=== PATIENT | male | born 1955 | race Caucasian/White ===

== ENCOUNTER 2016-09-23 21:10 | Inpatient (IN) | payer BC ==
--- NOTE | ~2016-09-23 | CN ---
Consultation Report [facility] [address] [place]. [address] NAME: AVA REAVES : 53 STATUS : ADM IN [facility]#: [id number] AGE: 61 ADM/REG DATE : 09/24/16 MR#: [id number] REPORT SERV DATE: 09/24/16 DICTATED BY: LESLIE BAER DATE: 09/24/16 REPORT STATUS : Draft TRANSCRIBED BY: MODL DATE: 09/24/16 INFECTIOUS DISEASE CONSULTATION DATE OF CONSULTATION: 09/24/2016 REASON FOR CONSULTATION: Antibiotic recommendations. HISTORY OF PRESENT ILLNESS: This is a 61-year-old man with a history of bilateral total knee arthroplasties about five years ago. He was mowing his lawn yesterday on his riding mower when it did turn over and trapped him underneath. A bit later his son found him and pulled him out and put a tourniquet on the leg and brought him to the emergency department where he underwent imaging as outlined below and was seen by Dr. Hassan who took him to the operating room last night and did irrigation and drainage. There was a lot of superficial and deep fascia that was torn with some muscle and fat in various places and injury to the saphenous vein, which could not be repaired. The patient underwent debridement and irrigation, and the wound was packed open and wrapped sterilely. The patient was started on vancomycin and Ancef. He is to return to the operating room tomorrow. He has had no fever. The patient denies any history of skin or soft tissue infections or MRSA infections. PAST MEDICAL HISTORY: Otherwise, notable for hypertension and hyperlipidemia. ALLERGIES: NO KNOWN DRUG ALLERGIES. PRESENT MEDICATIONS: In addition to the antibiotics include dexamethasone, Colace, Pepcid, iron, Toradol, multivitamins, OxyContin, and Coumadin sliding scale. SOCIAL HISTORY: Nonsmoker. Occasional alcohol. Lives with his . FAMILY HISTORY: Noncontributory. REVIEW OF SYSTEMS: Otherwise, negative. PHYSICAL EXAMINATION: VITAL SIGNS: The patient weighs 108 kg. He is afebrile. Blood pressure 117/66, pulse 58, and respiratory rate 14. GENERAL: He is lying in bed, and in no distress. HEAD AND NECK: Unremarkable. LUNGS: Clear to auscultation anteriorly. CARDIAC: Regular rate and rhythm. Normal S1 and S2 without murmur, gallop, or rub. ABDOMEN: Soft. EXTREMITIES: Left lower leg is in a postoperative dressing. The left total knee arthroplasty is without signs of inflammation. He has a peripheral IV without phlebitis. Consultation Report [place] [id number] [facility] [place]. [address] NAME: AVA REAVES : 53 STATUS : ADM IN PAT#: [id number] AGE: 61 ADM/REG DATE : 09/24/16 MR#: [id number] REPORT SERV DATE: 09/24/16 DICTATED BY: LESLIE BAER DATE: 09/24/16 REPORT STATUS : Draft TRANSCRIBED BY: KIERAN DATE: 09/24/16 LABORATORY STUDIES: White blood cell count initially yesterday was 10.1; hemoglobin initially was 14.2, repeat 10.5; and platelets 175. Liver function tests normal. Creatinine 0.84. The patient underwent CT scan of the brain, cervical spine, chest, abdomen, and pelvis without any acute findings. IMPRESSION: Severe leg laceration in a lawnmower accident with gross contamination of the deep tissues in the leg in a patient with bilateral total knee arthroplasties. PLAN: 1. We will continue Ancef for another 48 to 72 hours. 2. Await reassessment in the operating room tomorrow. BRIELLE/KIERAN Leslie Baer M.D. / [id number] CC: Benji Hassan M.D.
--- NOTE | ~2016-09-23 | OP ---
Record Of Operation [facility] [address] [place]. [address] NAME: AVA REAVES : 53 STATUS : ADM IN PAT#: [id number] AGE: 61 ADM/REG DATE : 09/24/16 MR#: [id number] REPORT SERV DATE: 09/25/16 DICTATED BY: OLIVE HASSAN DATE: 09/25/16 REPORT STATUS : Draft TRANSCRIBED BY: MODL DATE: 09/25/16 DATE OF PROCEDURE: 09/25/2016 PREOPERATIVE DIAGNOSIS: Left leg open traumatic wound. POSTOPERATIVE DIAGNOSIS: Left leg open traumatic wound. PROCEDURE: Left leg I and D, placement of antibiotic beads, and delayed closure. AUTOMATIC CENTRIFUGAL STATION OPERATOR: See chart. DESCRIPTION OF PROCEDURE: The patient was taken to the operating room and placed supine on the table in the normal fashion without incident. General anesthetic was induced per the anesthesiologist. The patient was carefully positioned, padded, prepped, and draped in a sterile fashion. Left lower extremity is copiously irrigated with pulsatile lavage from a 3 L bag. We left part of it for irrigation at the end. I then carefully probed his previously washed out knee to debride any obviously necrotic tissue. One of the medial gastroc muscles have been fairly significantly damaged. There appeared to be no further dysvascular muscle. The fascial plane was reapproximated with multiple interrupted #1 Vicryl sutures over some absorbable antibiotic beads that were placed between the deep and superficial compartments. The skin was then closed with multiple interrupted mattress sutures and sherman in the skin approximating the tissues well, but also leaving enough room for swelling and/or drainage. Wounds then dressed sterilely. Patient awakened and taken to postanesthesia care without incident. COMPLICATIONS: None. SPECIMENS: None. ESTIMATED BLOOD LOSS: About 25 mL. WTB/MODL Benji Hassan M.D. / [id number] CC: Benji Hassan M.D.
--- NOTE | ~2016-09-23 | OP ---
Record Of Operation [facility] [address] [place]. [address] NAME: AVA REAVES : 53 STATUS : ADM IN PAT#: [id number] AGE: 61 ADM/REG DATE : 09/24/16 MR#: [id number] REPORT SERV DATE: 09/24/16 DICTATED BY: OLIVE HASSAN DATE: 09/24/16 REPORT STATUS : Draft TRANSCRIBED BY: MODL DATE: 09/24/16 DATE OF PROCEDURE: 09/24/2016 PREOPERATIVE DIAGNOSIS: Left lower extremity lawnmower laceration, 20 cm in length, with gross contamination. POSTOPERATIVE DIAGNOSIS: Left lower extremity lawnmower laceration, 20 cm in length, with gross contamination. PROCEDURE: Left leg I and D, and hemostasis. SURGEON: Benji Hassan M.D. EMPLOYMENT AND CLAIMS AIDE: See chart. PROCEDURE IN DETAIL: The patient was taken to the operating room and placed supine on the table in the normal fashion without incident. General anesthetic was induced per the anesthesiologist. The patient was carefully positioned, padded, prepped, and draped in the normal sterile fashion. His excision was extended distally another 2 cm to allow exposure to a larger area of the saphenous vein that had been cut multiple times and was not repairable. I ligated it with multiple sutures. Careful exploration manually revealed that the superficial and deep fascia had been torn, cut in multiple places. muscle and obviously fat were debrided. The wound was then copiously irrigated with 3 L of pulsatile lavage, soaked with TXA, vancomycin powder, packed with iodine-soaked fluffs, and wrapped sterilely. The patient was awakened and taken to postanesthesia care without incident. COMPLICATIONS: None. SPECIMENS: None. BLOOD LOSS: About 100 mL. WTB/MODL Benji Hassan M.D. / [id number] CC: Benji Hassan M.D.
--- NOTE | ~2016-09-23 | HP ---
History And Physical [place] [id number] [facility] [place]. [address] NAME: AVA REAVES : 53 STATUS : ADM IN PAT#: [id number] AGE: 61 ADM/REG DATE : 09/24/16 MR#: [id number] REPORT SERV DATE: 09/24/16 DICTATED BY: OLIVE HASSAN DATE: 09/23/16 REPORT STATUS : Draft TRANSCRIBED BY: MODL DATE: 09/23/16 DATE OF ADMISSION: 09/24/2016 CHIEF COMPLAINT: Left leg pain, injury from a lawnmower accident. HISTORY: A 61-year-old male got his leg trapped under a lawnmower. His son pulled him out, put a tourniquet around his leg, and brought him in. He reports being n.p.o. since about 3 p.m. He reportedly got to the ER at 9:10 p.m. He denies any pain or injury elsewhere. No loss of consciousness, shortness of breath, chest pain, etc. He has some diffuse numbness all through his left foot. ALLERGIES: NONE REPORTED. MEDICATIONS: Lipitor, otherwise see chart. PAST MEDICAL HISTORY: Hypertension and hypercholesterolemia. PAST SURGICAL HISTORY: Bilateral knee replacement in the past. SOCIAL HISTORY: Two to three drinks of bourbon a day. Denies cigarettes or illicit drug use. His son brought him. He lives with his spouse. FAMILY HISTORY: No known anesthetic complications. REVIEW OF SYSTEMS: No recent illnesses. PHYSICAL EXAMINATION: GENERAL: He is alert and oriented x3, in no apparent distress. HEENT: Atraumatic and normocephalic. NECK: Supple. CHEST: Symmetric. Nontender. LUNGS: Per Medicine evaluation. CV: Regular. ABDOMEN: Soft. No mass. EXTREMITIES: Both upper extremities and right lower extremity without acute trauma. Left lower extremity with a large bulky dressing. Minimal coolness to his left foot. He has an easily palpable 2+ anterior tibial pulse. Sensory decreased essentially dorsally and plantar surface. He is able to fire his toe and ankle up and down. IMAGING: X-ray report revealed no fracture. I am unable to get the system to open that now. ASSESSMENT: Left leg injury with lawnmower, gross contamination. PLAN: Discussed this with the ER. He had a tetanus shot down there, was typed and crossed. Reportedly had a hemoglobin of 14 to start with and about 10 now. There was no pulsatile History And Physical [address] [address] NAME: AVA REAVES : 53 STATUS : ADM IN PAT#: [id number] AGE: 61 ADM/REG DATE : 09/24/16 MR#: [id number] REPORT SERV DATE: 09/24/16 DICTATED BY: OLIVE HASSAN DATE: 09/23/16 REPORT STATUS : Draft TRANSCRIBED BY: MODL DATE: 09/23/16 bleeding noted, but gross contamination. We have discussed risks, benefits, etc. to exploration, irrigation, and possible vascular, nerve, and/or tendon repair. We discussed the risks, benefits, etc. at length and the patient wishes to proceed. WTB/MODL Benji Hassan M.D. / [id number] CC: Benji Hassan M.D.
[2016-09-23 21:36] LABS: BASOPHILS 0.6 %; BASOPHILS ABSOLUTE 0.06 10/3/uL (0.0-0.16); EOSINOPHILS 3.9 %; EOSINOPHILS ABSOLUTE 0.39 10/3/uL (0.0-0.53); ER CBC TAT 0 Hrs 00 Mins; HEMOGLOBIN 14.2 g/dL (13.6-17.8); IMMATURE GRANULOCYTES 0.3 %; IMMATURE GRANULOCYTES ABSOLUTE 0.03 10/3/uL (0.0-0.11); LYMPHOCYTES 37.3 %; LYMPHOCYTES ABSOLUTE 3.75 10/3/uL (0.67-4.30); MANUAL DIFF NO %; MEAN CORPUS HGB CONC 34.6 g/dL (32.0-36.0); MEAN CORPUSCULAR HEMOGLOB 31.1 pg (26.0-34.0); MEAN CORPUSCULAR VOLUME 89.7 fL (80-100); MEAN PLATELET VOLUME 9.2 fL (9.2-13.0); MONOCYTES 5.6 %; MONOCYTES ABSOLUTE 0.56 10/3/uL (0.21-1.20); NEUTROPHILS 52.3 %; NEUTROPHILS ABSOLUTE 5.26 10/3/uL (2.02-8.40); PLATELET COUNT 256 10/3/uL (150-400); RBC DISTRIBUTION WIDTH 13.3 % (12.0-16.0); RED CELL COUNT 4.57 10/6/uL (4.7-6.1); WHITE BLOOD CELLS 10.1 10/3/uL (4.5-10.5)
[2016-09-23 21:52] LABS: A/G RATIO 1.2 (0.7-1.9); ALBUMIN 3.9 G/DL (3.5-5.0); ALKALINE PHOSPHATASE 62 U/L (45-117); BUN (BLOOD UREA NITROGEN) 19 MG/DL (6-23); CALCIUM, SERUM 8.5 MG/DL (8.5-10.4); CHLORIDE, SERUM 107 MMOL/L (96-112); CO2 (CARBON DIOXIDE) 19 MMOL/L (24-34); CREATININE 1.27 MG/DL (0.70-1.30); GFR AFRICAN AMERICAN 70 ML/MIN (>=60); GFR NON AFRICAN AMERICAN 60 ML/MIN (>=60); GLOBULIN 3.3 G/DL (2.5-4.1); POTASSIUM, SERUM 3.6 MMOL/L (3.5-5.3); SGOT(AST) 24 U/L (5-40); SGPT(ALT) 34 U/L (5-65); SODIUM, SERUM 141 MMOL/L (135-148); TOTAL BILIRUBIN 0.8 MG/DL (0-1.2); TOTAL PROTEIN 7.2 G/DL (6.0-8.5)
[2016-09-23 21:53] LABS: GLUCOSE, SERUM 119 MG/DL (60-99)
[2016-09-23 23:01] LABS: BASOPHILS 0.3 %; BASOPHILS ABSOLUTE 0.04 10/3/uL (0.0-0.16); EOSINOPHILS 1.4 %; EOSINOPHILS ABSOLUTE 0.21 10/3/uL (0.0-0.53); HEMOGLOBIN 11.6 g/dL (13.6-17.8); IMMATURE GRANULOCYTES 0.3 %; IMMATURE GRANULOCYTES ABSOLUTE 0.05 10/3/uL (0.0-0.11); LYMPHOCYTES 8.4 %; LYMPHOCYTES ABSOLUTE 1.28 10/3/uL (0.67-4.30); MEAN CORPUS HGB CONC 35.6 g/dL (32.0-36.0); MEAN CORPUSCULAR HEMOGLOB 31.6 pg (26.0-34.0); MEAN CORPUSCULAR VOLUME 88.8 fL (80-100); MONOCYTES 4.5 %; MONOCYTES ABSOLUTE 0.68 10/3/uL (0.21-1.20); NEUTROPHILS 85.1 %; RBC DISTRIBUTION WIDTH 13.4 % (12.0-16.0); RED CELL COUNT 3.67 10/6/uL (4.7-6.1)
[2016-09-23 23:05] LABS: ER CBC TAT 0 Hrs 07 Mins; HEMATOCRIT 32.6 % (40.0-51.0); MANUAL DIFF NO %; PLATELET COUNT 175 10/3/uL (150-400); WHITE BLOOD CELLS 15.3 10/3/uL (4.5-10.5)
[2016-09-24 03:24] LABS: HEMATOCRIT 29.6 % (40.0-51.0); HEMOGLOBIN 10.5 g/dL (13.6-17.8)
[2016-09-24 03:35] LABS: INTERNATIONAL NORMAL RATI 1.2 UNITS (-); PROTIME (NOT ORD) 14.9 SEC (12.0-14.5)
[2016-09-24 03:39] LABS: CHLORIDE, SERUM 111 MMOL/L (96-112); CO2 (CARBON DIOXIDE) 22 MMOL/L (24-34); CREATININE 0.84 MG/DL (0.70-1.30); GFR AFRICAN AMERICAN 109 ML/MIN (>=60); GFR NON AFRICAN AMERICAN 94 ML/MIN (>=60); GLUCOSE, SERUM 116 MG/DL (60-99); POTASSIUM, SERUM 4.2 MMOL/L (3.5-5.3); SODIUM, SERUM 139 MMOL/L (135-148)
[2016-09-24 03:40] LABS: BUN (BLOOD UREA NITROGEN) 15 MG/DL (6-23)
[2016-09-24] MEDS ORDERED: CO Q-10100 MG PO (12:18)
[2016-09-24] MEDS ORDERED: FISH-EPA1000 MG PO (12:19)
[2016-09-24] MEDS ORDERED: LIPITOR20 PO (12:19)
[2016-09-24] MEDS ORDERED: PRESERVISION A1 EACH PO (12:19)
[2016-09-24] MEDS ORDERED: TOPXL25 PO (12:20)
[2016-09-24] MEDS ORDERED: AMOXIL500 MG PO (12:22)
[2016-09-25 05:11] LABS: BASOPHILS 0.1 %; BASOPHILS ABSOLUTE 0.01 10/3/uL (0.0-0.16); EOSINOPHILS 0.9 %; EOSINOPHILS ABSOLUTE 0.07 10/3/uL (0.0-0.53); HEMOGLOBIN 9.1 g/dL (13.6-17.8); IMMATURE GRANULOCYTES 0.4 %; IMMATURE GRANULOCYTES ABSOLUTE 0.03 10/3/uL (0.0-0.11); LYMPHOCYTES 14.5 %; LYMPHOCYTES ABSOLUTE 1.12 10/3/uL (0.67-4.30); MEAN CORPUS HGB CONC 34.6 g/dL (32.0-36.0); MEAN CORPUSCULAR HEMOGLOB 31.5 pg (26.0-34.0); MONOCYTES 7.1 %; MONOCYTES ABSOLUTE 0.55 10/3/uL (0.21-1.20); NEUTROPHILS ABSOLUTE 5.93 10/3/uL (2.02-8.40); PLATELET COUNT 144 10/3/uL (150-400)
[2016-09-25 05:13] LABS: HEMATOCRIT 26.3 % (40.0-51.0); MANUAL DIFF NO %; RED CELL COUNT 2.89 10/6/uL (4.7-6.1); WHITE BLOOD CELLS 7.7 10/3/uL (4.5-10.5)
[2016-09-25 05:20] LABS: INTERNATIONAL NORMAL RATI 1.1 UNITS (-); PROTIME (NOT ORD) 14.5 SEC (12.0-14.5)
[2016-09-25 05:30] LABS: CHLORIDE, SERUM 109 MMOL/L (96-112); CO2 (CARBON DIOXIDE) 25 MMOL/L (24-34); CREATININE 0.84 MG/DL (0.70-1.30); GFR AFRICAN AMERICAN 109 ML/MIN (>=60); GFR NON AFRICAN AMERICAN 94 ML/MIN (>=60); GLUCOSE, SERUM 125 MG/DL (60-99); POTASSIUM, SERUM 4.1 MMOL/L (3.5-5.3); SODIUM, SERUM 139 MMOL/L (135-148)
[2016-09-25 05:31] LABS: BUN (BLOOD UREA NITROGEN) 11 MG/DL (6-23); CALCIUM, SERUM 8.1 MG/DL (8.5-10.4)
[2016-09-25 05:44] LABS: TRIGLYCERIDE 89 MG/DL (< 150)
[2016-09-25 05:45] LABS: CHOL/HDL RATIO(NOT ORDER) 2.4 (0-5); CHOLESTEROL 115 MG/DL (< 200); HDL CHOLESTEROL 48 MG/DL (> 39); LDL CHOLESTEROL 50 MG/DL (< 130); NON-HDL CHOLESTEROL 67 MG/DL (< 160)
[2016-09-26 05:42] LABS: INTERNATIONAL NORMAL RATI 1.1 UNITS (-); PROTIME (NOT ORD) 14.4 SEC (12.0-14.5)
[2016-09-26 05:43] LABS: HEMATOCRIT 24.9 % (40.0-51.0); HEMOGLOBIN 8.7 g/dL (13.6-17.8)
[2016-09-26 05:51] LABS: BUN (BLOOD UREA NITROGEN) 8 MG/DL (6-23); CALCIUM, SERUM 8.4 MG/DL (8.5-10.4); CHLORIDE, SERUM 109 MMOL/L (96-112); CO2 (CARBON DIOXIDE) 27 MMOL/L (24-34); CREATININE 0.79 MG/DL (0.70-1.30); GFR AFRICAN AMERICAN 112 ML/MIN (>=60); GFR NON AFRICAN AMERICAN 96 ML/MIN (>=60); GLUCOSE, SERUM 112 MG/DL (60-99); POTASSIUM, SERUM 3.8 MMOL/L (3.5-5.3); SODIUM, SERUM 142 MMOL/L (135-148)
[2016-09-26] MEDS ORDERED: COUMADIN3 MG PO (16:34)
[2016-09-26] MEDS ORDERED: PCET PO (16:34)
== END 2016-09-26 17:42 | disposition home or self-care (01) | DRG 909 ==
LOC: ER 21:10 → SDC 23:23 → 3SO 09-24 01:16
PROVIDERS: Emergency Medicine; Specialist
PROC: 0J9P0ZZ Drainage of Left Lower Leg Subcutaneous Tissue and Fascia, Open Approach (ICD-10-PCS; 2016-09-24)
PROC: 0JDP0ZZ Extraction of Left Lower Leg Subcutaneous Tissue and Fascia, Open Approach (ICD-10-PCS; 2016-09-24)
PROC: [UNRECOGNIZED PROCEDURE] (principal; 2016-09-24 01:18)
PROC: 0J9P0ZZ Drainage of Left Lower Leg Subcutaneous Tissue and Fascia, Open Approach (ICD-10-PCS; 2016-09-25)
PROC: 3E01329 Introduction of Other Anti-infective into Subcutaneous Tissue, Percutaneous Approach (ICD-10-PCS; 2016-09-25)
DX: S81.822A Laceration with foreign body, left lower leg, initial encounter (principal); I10 Essential (primary) hypertension; W31.89XA Contact with other specified machinery, initial encounter; Y93.I9 Activity, other involving external motion; Y92.007 Garden or yard of unspecified non-institutional (private) residence as the place of occurrence of the external cause; E78.5 Hyperlipidemia, unspecified; Z89.522 Acquired absence of left knee; Z89.521 Acquired absence of right knee
CPT/HCPCS: 36415; 70450; 71010; 71260; 72125; 73590-LT; 74177; 80048; 80053; 80061; 81001; 85014; 85018; 85025; 85610; 86850; 86900; 86901; 86920; 90471; 96374; 96375; 96376; 97161-GP; 97164-GP; 97165-GO; 99285; A9270-GY; C1713; J0330; J0690; J1170; J1885; J2250; J2370; J2405; J3010; J3260; J3370; P9045; Q9967